=== PATIENT | male | born 2000 | race Two or more races ===

== ENCOUNTER → 2020-12-05 | Outpatient (CLI) | payer SELFPAY | LOC: M LABSMTC 14:23 | PROVIDERS: ATTEND Pediatrics | DX: Z11.52 Encounter for screening for COVID-19 (principal) ==

== ENCOUNTER 2021-02-06 17:33 | Emergency (ER) | payer OTHER, SELFPAY ==
[~2021-02-06] VITALS: Ht 177.8 cm; Wt 81.8 kg
--- NOTE | 2021-02-06 18:53 | REP ---
INDICATION: trauma. COMPARISON: None. TECHNIQUE: Five views FINDINGS: Five views of the lumbosacral spine show no acute fracture, dislocation or subluxation. The intervertebral disc spaces are symmetric and well maintained. There is no spondylolysis or spondylolisthesis. The pedicles are intact bilaterally and there is no destructive osseous lesion. There is incidental non fusion of the left transverse process L1 IMPRESSION: Unremarkable lumbosacral spine series. <Electronically signed by Chuck Dotson > 02/06/21 [id number]
--- NOTE | 2021-02-06 18:53 | REP ---
INDICATION: trauma. COMPARISON: None TECHNIQUE: Four views FINDINGS: There is no acute fracture, dislocation, subluxation, or joint effusion. IMPRESSION: Within normal limits <Electronically signed by Chuck Dotson > 02/06/21 [id number]
--- NOTE | 2021-02-06 18:54 | REP ---
INDICATION: trauma. TECHNIQUE: AP pelvis. FINDINGS: The hip joint spaces are symmetric and relatively well maintained. There is no acute fracture or destructive osseous lesion. IMPRESSION: Negative exam. <Electronically signed by Chuck Dotson > 02/06/21 [id number]
[2021-02-06] MEDS ORDERED: NAPR-837 PO (19:22)
[2021-02-06] MEDS ORDERED: CYCL-707 PO (19:22)
[2021-02-06 20:00] VITALS: BP 129/69
== END 2021-02-06 20:02 | disposition home or self-care (01) ==
LOC: M ED 17:33
DX: S33.5XXA Sprain of ligaments of lumbar spine, initial encounter (principal); S50.311A Abrasion of right elbow, initial encounter; S50.01XA Contusion of right elbow, initial encounter; W19.XXXA Unspecified fall, initial encounter; Y92.9 Unspecified place or not applicable; Y93.67 Activity, basketball; Y99.9 Unspecified external cause status

== ENCOUNTER 2021-11-20 17:45 | Inpatient (IN) | payer OTHER ==
[~2021-11-20] VITALS: Ht 177.8 cm; Wt 82.4 kg
[~2021-11-20 17:45] MED LIST: CYCL-707 PO; NAPR-837 PO
[2021-11-20] MEDS ORDERED: HOME MED LIST COMPLETE! XX SCH (18:45)
[2021-11-20 19:52] LABS: HEMATOCRIT 43.2 % (42.0-52.0); HEMOGLOBIN 14.3 g/dl (13.5-17.5); MEAN CORPUSCULAR HGB CONC 33.1 g/dl (32.0-36.5); MEAN CORPUSCULAR VOLUME 81.7 fl (80.0-96.0); PLATELET COUNT, AUTOMATED 241 10^3/uL (150-450); RED BLOOD COUNT 5.29 10^6/uL (4.30-6.10); WHITE BLOOD COUNT 3.6 10^3/uL (4.0-10.0)
[2021-11-20 20:07] LABS: AMPHETAMINES LEVEL URINE NEGATIVE (NEGATIVE); BARBITURATES URINE NEGATIVE (NEGATIVE); BENZODIAZEPINES URINE NEGATIVE (NEGATIVE); CANNABINOIDS URINE NEGATIVE (NEGATIVE); COCAINE METABOLITE URINE NEGATIVE (NEGATIVE); METHADONE URINE NEGATIVE (NEGATIVE); OPIATES URINE NEGATIVE (NEGATIVE); PHENCYCLIDINE URINE NEGATIVE (NEGATIVE)
[2021-11-20 20:26] LABS: ACETAMINOPHEN LEVEL < 2.0 UG/ML (10.0-30.0); ALBUMIN 4.2 GM/DL (3.2-5.2); ALT/SGPT 20 U/L (12-78); BILIRUBIN,DIRECT 0.2 MG/DL (0.0-0.2); BILIRUBIN,TOTAL 0.6 MG/DL (0.2-1.0); BLOOD UREA NITROGEN 11 MG/DL (7-18); CARBON DIOXIDE LEVEL 31 MEQ/L (21-32); CHLORIDE LEVEL 103 MEQ/L (98-107); CREATININE FOR GFR 1.16 MG/DL (0.70-1.30); ETHYL ALCOHOL (ETHANOL) < 0.003 % (0.000-0.010); GLUCOSE, FASTING 82 MG/DL (70-100); POTASSIUM SERUM 4.3 MEQ/L (3.5-5.1); SALICYLATE LEVEL < 1.7 MG/DL (5.0-30.0); SODIUM LEVEL 138 MEQ/L (136-145); THYROID STIMULATING HORMONE 0.373 uIU/ML (0.463-3.98); TOTAL PROTEIN 7.6 GM/DL (6.4-8.2)
[2021-11-20 20:56] LABS: RSV AMPLIFICATION NEGATIVE (NEGATIVE)
[2021-11-21] MEDS ORDERED: ACETAMINOPHEN TAB 650MG DOSE (2X325MG) PO PRN (03:45)
[2021-11-21] MEDS ORDERED: traZODone 50 MG TAB PO PRN (03:45)
[2021-11-21] MEDS ORDERED: MOM 30ML SUSPENSION UDC PO PRN (03:45)
[2021-11-21] MEDS ORDERED: MAALOX 30 ML SUSP *UDC PO PRN (03:45)
[2021-11-21] MEDS ORDERED: hydrOXYzine 10 MG TAB PO PRN (06:05)
[2021-11-21 06:10] VITALS: BP 124/78
[2021-11-21] MEDS: SERTRALINE HCL 50 MG TAB PO SCH (10:31)
[2021-11-21 10:53] VITALS: BP 124/78
[2021-11-21 18:58] VITALS: BP 121/60
[2021-11-22 06:45] VITALS: BP 107/51
[2021-11-22] MEDS: SERTRALINE HCL 50 MG TAB PO SCH (09:53)
[2021-11-22 16:29] VITALS: BP 132/73
[2021-11-23 06:22] VITALS: BP 129/60
[2021-11-23] MEDS: SERTRALINE HCL 50 MG TAB PO SCH ×2 (09:00→20:20)
[2021-11-23 16:09] VITALS: BP 117/64
[2021-11-24 06:32] VITALS: BP 128/74
[2021-11-24 17:45] VITALS: BP 135/75
[2021-11-24] MEDS: SERTRALINE HCL 50 MG TAB PO SCH (20:29)
[2021-11-25 06:43] VITALS: BP 119/60
[2021-11-25] MEDS ORDERED: SERT50TA29 PO (08:20)
== END 2021-11-25 12:29 | disposition home or self-care (01) | DRG 882 ==
LOC: M ED 17:45 → M ED INP 17:46 → M PSY 11-21 05:50
PROVIDERS: ADMIT Psychiatry & Neurology Psychiatry; ATTEND Psychiatry & Neurology Psychiatry
DX: F43.23 Adjustment disorder with mixed anxiety and depressed mood (principal); R45.851 Suicidal ideations; Z63.5 Disruption of family by separation and divorce; Z63.4 Disappearance and death of family member; Z20.822 Contact with and (suspected) exposure to COVID-19; Z56.6 Other physical and mental strain related to work

== ENCOUNTER 2023-01-09 15:04 | Emergency (ER) | payer OTHER ==
[~2023-01-09] VITALS: Ht 177.8 cm; Wt 93.3 kg
[~2023-01-09 15:04] MED LIST changes: +SERT50TA29 PO
[2023-01-09 15:05] VITALS: BP 145/77
== END 2023-01-09 18:33 | disposition home or self-care (01) ==
LOC: M ED 15:04
DX: Z00.00 Encounter for general adult medical examination without abnormal findings (principal)